=== PATIENT | female | born 1965 | race African-American/Black ===

== ENCOUNTER 2018-05-22 02:21 | Observation (INO) ==
--- NOTE | 2018-05-22 05:07 | Internal Med History&Physical ---
Date of Encounter: 05/22/18 Time of Encounter: 05:21 Internal Medicine - H&P: HPI Chief complaint: Chest pain Admitted From: Hospital to Hospital Transfer Plans for Post Hospital Care: Home History of present illness: Ms. Rene is a 52 year old female Patient presented to the [facility] emergency room with chest pain. She describes it as a tightness that goes to her left neck and shoulder area. She has had symptoms like this before with a previous stroke about 10 years ago. The pain started approximately 3 hours prior to her arrival, and has continued since she arrived. She denies shortness of breath and nausea. She has a history of hypertension and diabetes. At the [facility] emergency room patient's vital signs were stable, CBC was within normal limits. Patient's BMP showed a hypokalemia of 2.8. Her initial troponin was undetectable. Her blood glucose was measured at 192. Chest x-ray was performed which showed no acute process. An EKG was performed that showed normal sinus rhythm with no acute ST elevation or depression noted. She was given aspirin as well as Nitropaste and her chest tightness improved. Potassium re-supplementation was started prior to her transfer. She was transferred to [facility] for further management. Upon my evaluation, patient is resting comfortably in the hospital bed. She denies chest pain stating that it is much better than it was at around midnight when she was in the ER. She denies vision changes, nausea, vomiting, chest pain, diarrhea and constipation. She has some abdominal pain secondary to kidney stones which has been dealing with the last few weeks. She also states that she had this similar kind of chest pain about 2 weeks ago but it resolved. She did get a chest x-ray at that time but she was told was normal. She had the pain again about 3 hours prior to coming to the ER and was concerned because it was similar to when she had a stroke about 10 years ago. She had pain in her jaw and left shoulder as well as chest tightness. She had another stroke ruled out to be a TIA in 2013. She has some left-sided residual deficits but says she has no limitations to her movement. In the ER at the [facility] patient only received about 10 mEq of the potassium prior to her being transferred. Past Med Surg Social Fam HX - Past Medical History Medical history: asthma, CHF, CVA, diabetes, hypertension, TIA, other Additional medical history: SLEEP APNEA, USES 2 L NC HOME O2 AT NIGHT Psychiatric history: anxiety, depression - Past Surgical History Additional surgical history: tubal, Heart cath, Spinal tap - Social History Smoking Status: Never smoker Smokeless Tobacco Status: No Alcohol use: none Drug use: none - Family History Mother Hx Family Cancer: Yes (Leukemia) Internal Medicine - H&P: Meds Triamterene/Hydrochlorothiazid [Dyazide 37.5-25 Capsule] 1 each PO DAILY #30 capsule 10/02/15 [Rx] Albuterol Sulfate [Albuterol Inhaler] 2 puff IH Q4H PRN 11/19/15 [History] Aspirin Enteric Coated [Aspirin EC] 325 mg PO DAILY 11/19/15 [History] Folic Acid 1 mg PO DAILY 11/19/15 [History] Vitamin B Complex 1 each PO DAILY 11/19/15 [History] Albuterol Neb [Proventil Neb] 2.5 mg IH TID 09/02/16 [History] Budesonide/Formoterol 160/4.5 [Symbicort 160/4.5] 2 puff IH BIDR 09/02/16 [History] Carvedilol [Coreg] 25 mg PO BIDWM 09/02/16 [History] Citalopram [CeleXA] 20 mg PO DAILY 09/02/16 [History] Furosemide [Lasix] 40 mg PO BID 09/02/16 [History] Metformin HCl [Fortamet] 750 mg PO DAILY 06/25/17 [History] Albuterol Sulfate [Ventolin Hfa] 18 gm IH Q4H PRN 05/22/18 [History] Losartan Potassium [Cozaar] 50 mg PO DAILY 05/22/18 [History] Montelukast [Singulair] 10 mg PO DAILY 05/22/18 [History] Potassium Chloride [K-Tab ER] 20 meq PO TID 05/22/18 [History] Ranitidine HCl [Acid Fur Machine Operator] 150 mg PO DAILY 05/22/18 [History] Spironolactone [Aldactone] 50 mg PO DAILY 05/22/18 [History] Allergy/AdvReac Type Severity Reaction Status Date / Time Iodinated Contrast- Oral and Allergy Swelling Verified 06/25/17 07:08 IV Dye of [Iodinated Contrast Media - Lip/Tongue/Throat IV Dye] All Systems PM: A 10-system review of systems was performed and is negative for pertinent f indings except as documented above in the HPI. - Constitutional Vitals: Temp Pulse Resp BP Pulse Ox 97.6 F 69 14 125/74 97 05/22/18 04:56 05/22/18 04:56 05/22/18 04:56 05/22/18 04:56 05/22/18 04:56 General appearance: Present: cooperative, A&O X 3, pleasant, no acute distress, answers questions appropriately Exam: - - Head Head exam: Present: normal inspection - Eye Eye exam: Present: EOMI, normal appearance - Neck Neck exam general surgery: Present: full ROM. Absent: tenderness - Respiratory Respiratory exam: Present: CTAB. Absent: chest wall tenderness, decreased breath sounds, rales, respiratory distress, rhonchi, wheezes - Cardiovascular Cardiovascular exam: Present: RRR. Absent: diastolic murmur, systolic murmur - GI/Abdominal GI/Abdominal exam: Present: normal bowel sounds, soft. Absent: tenderness - Extremities Exam Extremities exam: Present: warm, radial pulses palpable and symmetrical. Absent: calf tenderness, pedal edema, tenderness - Neurological Exam Neurological exam: Present: motor sensory deficit. Absent: no focal deficits, strengths equal and symetr throughout, facial droop, speech deficit Additional comments: Patient has chronic left-sided weakness in her upper and lower extremities when compared to right from a previous stroke - Skin Skin exam: Present: dry, normal color, warm - Assessment and plan (1) Chest pain Current Visit: No Status: Acute Assessment and plan: Patient's chest pain has now nearly resolved. She received aspirin as well as nitroglycerin at the [facility] emergency room. Patient's last cardiac workup was nearly 2 years ago. Cardiac monitoring Continue to trend troponins Echocardiogram in the morning Qualifiers: Chest pain type: unspecified Qualified Code(s): R07.9 - Chest pain, unspecified (2) Hypokalemia Current Visit: No Status: Acute Assessment and plan: Patient's potassium was 2.8 at the [facility] emergency room. Patient does take Lasix as well as spironolactone at home. She says that her potassium is always low and does take 20 mEq of potassium the times a day. At [facility] she received 10 mEq of IV potassium prior to being transferred, the rate of which had to be decreased due to burning sensation. Continue potassium supplementation with lidocaine mix. Repeat potassium levels with a repeat BMP once completed Check a magnesium with repeat BMP Continue re-supplementation as needed (3) Diabetes Current Visit: Yes Status: Acute Assessment and plan: Patient is not an insulin-dependent diabetic. Nothing by mouth currently, diabetic diet when no longer nothing by mouth. 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 We we will continue to monitor her blood pressure, currently it is 125/74. She did receive nitro paste at the [facility] emergency room. We will hold her home meds as to not cause her to become hypotensive. Restart home meds at discharge. Qualifiers: Hypertension type: essential hypertension Qualified Code(s): I10 - Essential (primary) hypertension (5) DVT prophylaxis Current Visit: No Status: Acute Assessment and plan: Subcutaneous heparin - Time Spent With Patient Total time spent is greater than 50% in coordination of care (as documented) at patient's floor/unit and/or counseling patient: Greater than 35 minutes
[2018-05-22] MEDS ORDERED: Naloxone 0.4 MG/ML INJ IVP PRN (05:08)
[2018-05-22] MEDS ORDERED: Potassium Chloride 40 MEQ, Lidocaine 1% 2 ML in D5% in Water 500 ML IVPB ONE (05:30)
[2018-05-22] MEDS ORDERED: Dextrose Gel 15 GM/37.5 ML TUBE PO PRN ×2 (05:40)
[2018-05-22] MEDS ORDERED: *HR* Dextrose 50 % in Water (Syg) 50 ML SYRINGE IVP PRN (05:40)
[2018-05-22] MEDS ORDERED: D5% in Water 1,000 ML IVC PRN (05:40)
[2018-05-22] MEDS ORDERED: *HR* Heparin 5,000 UNIT/ML VIAL SQ SCH (06:00)
[2018-05-22] MEDS: Insulin LISPRO 300 UNITS/3 ML VIAL SQ SCH ×2 (06:09→12:58)
[2018-05-22] MEDS: Nitroglycerin 0.4 MG TAB.SUBL SL PRN ×2 (06:12→06:18)
[2018-05-22 12:03] VITALS: BP 142/85
--- NOTE | 2018-05-22 13:43 | Discharge Summary ---
- NOTES TO OUTPATIENT PROVIDER Notes to Outpatient Provider: f/u with PCP within a week. Orders not resulted at time of discharge: Pending orders 05/22/18 09:23 NM nan perf SPECT multi [NM] Routine 05/22/18 13:30 Troponin I Q6H Date of Encounter: 05/22/18 Time of Encounter: 13:40 - Discharge Diagnosis (1) Chest pain Priority: Primary Status: Acute Qualifiers: Chest pain type: unspecified Qualified Code(s): R07.9 - Chest pain, unspecified (2) Hypokalemia Priority: Primary Status: Acute (3) Diabetes Priority: Secondary Status: Chronic Qualifiers: Diabetes mellitus type: type 2 Diabetes mellitus termite renewal inspector insulin use: without termite renewal inspector use Diabetes mellitus complication status: without complication Qualified Code(s): E11.9 - Type 2 diabetes mellitus without complications (4) Hypertension Priority: Secondary Status: Chronic Qualifiers: Hypertension type: essential hypertension Qualified Code(s): I10 - Essential (primary) hypertension Hospital course: Ms. Rene is a 52 year old female Patient presented to the [facility] emergency room with chest pain. She describes it as a tightness that goes to her left neck and shoulder area. She has had symptoms like this before with a previous stroke about 10 years ago. The pain started approximately 3 hours prior to her arrival, and has continued since she arrived. She denies shortness of breath and nausea. She has a history of hypertension and diabetes. At the [facility] emergency room patient's vital signs were stable, CBC was within normal limits. Patient's BMP showed a hypokalemia of 2.8. Her initial troponin was undetectable. Her blood glucose was measured at 192. Chest x-ray was performed which showed no acute process. An EKG was performed that showed normal sinus rhythm with no acute ST elevation or depression noted. She was given aspirin as well as Nitropaste and her chest tightness improved. Potassium re-supplementation was started prior to her transfer. She was transferred to [facility] for further management. Upon my evaluation, patient is resting comfortably in the hospital bed. She den ies chest pain stating that it is much better than it was at around midnight when she was in the ER. She denies vision changes, nausea, vomiting, chest pain, diarrhea and constipation. She has some abdominal pain secondary to kidney stones which has been dealing with the last few weeks. She also states that she had this similar kind of chest pain about 2 weeks ago but it resolved. She did get a chest x-ray at that time but she was told was normal. She had the pain again about 3 hours prior to coming to the ER and was concerned because it was similar to when she had a stroke about 10 years ago. She had pain in her jaw and left shoulder as well as chest tightness. She had another stroke ruled out to be a TIA in 2013. She has some left-sided residual deficits but says she has no limitations to her movement. In the ER at the [facility] patient only received about 10 mEq of the potassium prior to her being transferred. Patient underwent an echocardiogram which revealed normal ejection fraction and mild LV DD. Stress test was unremarkable without ischemic change. Patient will be discharged home, follow-up with PCP within a week. Discharge discussed with: patient, family Time spent discussing smoking cessation with patient: more than 10 minutes - Time Spent with Patient Total time spent providing and/or coordinating discharge services: 45 mins. Greater than 30 minutes - Discharge Medications Home Medications: Triamterene/Hydrochlorothiazid [Dyazide 37.5-25 Capsule] 1 each PO DAILY #30 capsule 10/02/15 [Rx] Albuterol Sulfate [Albuterol Inhaler] 2 puff IH Q4H PRN 11/19/15 [History] Aspirin Enteric Coated [Aspirin EC] 325 mg PO DAILY 11/19/15 [History] Folic Acid 1 mg PO DAILY 11/19/15 [History] Vitamin B Complex 1 each PO DAILY 11/19/15 [History] Albuterol Neb [Proventil Neb] 2.5 mg IH TID 09/02/16 [History] Budesonide/Formoterol 160/4.5 [Symbicort 160/4.5] 2 puff IH BIDR 09/02/16 [History] Carvedilol [Coreg] 25 mg PO BIDWM 09/02/16 [History] Citalopram [CeleXA] 20 mg PO DAILY 09/02/16 [History] Furosemide [Lasix] 40 mg PO BID 09/02/16 [History] Metformin HCl [Fortamet] 750 mg PO DAILY 06/25/17 [History] Albuterol Sulfate [Ventolin Hfa] 18 gm IH Q4H PRN 05/22/18 [History] Losartan Potassium [Cozaar] 50 mg PO DAILY 05/22/18 [History] Montelukast [Singulair] 10 mg PO DAILY 05/22/18 [History] Potassium Chloride [K-Tab ER] 20 meq PO TID 05/22/18 [History] Ranitidine HCl [Acid Gis Software Developer] 150 mg PO HS 05/22/18 [History] Spironolactone [Aldactone] 50 mg PO DAILY 05/22/18 [History] Symbicort 160/4.5 2 puff IH BID 05/22/18 [History] Allergies/Adverse Reactions: Allergy/AdvReac Type Severity Reaction Status Date / Time Iodinated Contrast- Oral and Allergy Swelling Verified 06/25/17 07:08 IV Dye of [Iodinated Contrast Media - Lip/Tongue/Throat IV Dye] Date of admission: 05/22/18 04:34 Primary care physician: PCP NONE Anticipated date of discharge: 05/22/18 - Constitutional Vitals: Temp Pulse Resp BP Pulse Ox 98.1 F 68 16 142/85 95 05/22/18 11:56 05/22/18 11:56 05/22/18 11:56 05/22/18 11:56 05/22/18 11:56 General appearance: Present: cooperative, A&O X 3, pleasant, no acute distress, answers questions appropriately Exam: PHYSICAL EXAMINATION: GENERAL APPEARANCE: The patient is alert, oriented and in no acute distress. HEENT: Head is normocephalic. The sinuses are nontender. Pupils are equal and reactive. The nares are patent. Oropharynx clear without lesions. NECK: Supple without lymphadenopathy. HEART: Regular rate and rhythm. LUNGS: No crackles or wheezes are heard. ABDOMEN: Soft, nontender, nondistended with good bowel sounds heard. Inguinal area is normal. EXTREMITIES: Without cyanosis, clubbing or edema. NEUROLOGICAL: Gross nonfocal. SKIN: Warm and dry without any rash. - Patient Status Disposition: Home, Self-Care Condition: Fair Functional capacity at discharge: independent ambulation Overall status at discharge: patient is progressing back to baseline - Discharge Instructions Follow Up With: NONE,PCP [Primary Care Provider] - - Diet and Activity Activity: increase activity as tolerated Diet: diabetic diet, low fat, low cholesterol, low salt diet
== END 2018-05-22 14:12 | disposition home or self-care (01) ==
LOC: 3BNU
PROVIDERS: ADMIT Family Medicine; ATTEND Family Medicine